=== PATIENT | female | born 1980 | race Caucasian/White ===

== ENCOUNTER 2017-05-03 18:05 | Emergency (ER) | payer OTHER ==
[~2017-05-03] VITALS: Ht 157.5 cm; Wt 65.9 kg
[~2017-05-03 18:05] MED LIST: Z.0.NO CURRENT MEDS
[2017-05-03 18:07] VITALS: BP 115/65; PULSE 97; RESP 17; TEMP 98.6; O2SAT 96
--- NOTE | 2017-05-03 18:11 | PD ---
Physical Exam Time Seen by Provider: 18:09 Narrative 36yo C/o severe lower abd pain started last night about 8pm. LMP 2 weeks. Denies fever, V, D. +nausea in the mornings. Reports a watery vaginal discharge, but no odor. Patient seen in triage. VS reviewed. Awaiting bed placement. Data Data Last Documented VS Vital Signs Date Time Temp Pulse Resp B/P (MAP) Pulse Ox O2 Delivery O2 Flow Rate FiO2 05/03/17 18:07 98.6 97 17 115/65 (82) 96 MDM Supervised Visit with VENESSA: Xin Smith May 03, 2017 18:11
--- NOTE | 2017-05-03 20:17 | PD ---
HPI Chief Complaint: Abdominal Pain Time Seen by Provider: 20:04 Travel History International Travel<30 days: No Contact w/Intl Traveler<30days: No Traveled to known affect area: No History of Present Illness HPI c/o one day h/o diffuse abd pain, crampy, assoc with n/v/D, 02/17, denies /fever/ cough/uri sx/uti sx PFSH Past Medical History ?: Not LMP: APR 2017 Social History Alcohol Use: No (Hx) Tobacco Use: Yes Substance Use: Yes (Hx.) Allergies-Medications (Allergen,Severity, Reaction): Coded Allergies: No Known Allergies (Verified , 05/03/17) Reported Meds & Prescriptions Reported Meds & Active Scripts Active Cipro (Ciprofloxacin HCl) 500 Mg Tab 500 Mg PO BID Flagyl (Metronidazole) 500 Mg Tab 500 Mg PO TID Zofran Odt (Ondansetron Odt) 4 Mg Tab 4 Mg SL Q6HR PRN Ultram (Tramadol HCl) 50 Mg Tab 50 Mg PO Q4H PRN Reported No Current Meds (Miscellaneous Medication) Misc Review of Systems Except as stated in HPI: all other systems reviewed are Neg Gastrointestinal: Positive: Nausea, Diarrhea, Abdominal Pain Physical Exam Narrative GENERAL: SKIN: Warm and dry. HEAD: Atraumatic. Normocephalic. EYES: Pupils equal and round. No scleral icterus. No injection or drainage. ENT: No nasal bleeding or discharge. Mucous membranes pink and moist. NECK: Trachea midline. No JVD. CARDIOVASCULAR: Regular rate and rhythm. RESPIRATORY: No accessory muscle use. Clear to auscultation. Breath sounds equal bilaterally. GASTROINTESTINAL: Abdomen soft, non-tender, nondistended. no rebound/guarding/ rigidity MUSCULOSKELETAL: Extremities without clubbing, cyanosis, or edema. No obvious deformities. NEUROLOGICAL: Awake and alert. No obvious cranial nerve deficits. Motor grossly within normal limits. Five out of 5 muscle strength in the arms and legs. Normal speech. PSYCHIATRIC: Appropriate mood and affect; insight and judgment normal. Data Data Last Documented VS Vital Signs Date Time Temp Pulse Resp B/P (MAP) Pulse Ox O2 Delivery O2 Flow Rate FiO2 05/03/17 21:43 18 100 Room Air 05/03/17 18:07 98.6 97 Orders Orders Complete Blood Count With Diff (05/03/17 20:17) Comprehensive Metabolic Panel (05/03/17 20:17) Lipase (05/03/17 20:17) Urinalysis - C+S If Indicated (05/03/17 20:17) Ct Abd/Pel W/O Iv Contrast (05/03/17 20:17) Iv Access Insert/Monitor (05/03/17 20:17) Ecg Monitoring (05/03/17 20:17) Oximetry (05/03/17 20:17) NPO (05/03/17 20:17) Morphine Inj (Morphine Inj) (05/03/17 20:30) Ondansetron Inj (Zofran Inj) (05/03/17 20:30) Sodium Chloride 0.9% Flush (Ns Flush) (05/03/17 20:30) Ed Urine Pregnancytest Poc (05/03/17 20:17) Metronidazole (Flagyl) (05/03/17 23:45) Levofloxacin (Levaquin) (05/03/17 23:45) Labs Laboratory Tests Test 05/03/17 21:45 White Blood Count 16.9 TH/MM3 Red Blood Count 4.94 MIL/MM3 Hemoglobin 14.4 GM/DL Hematocrit 44.1 % Mean Corpuscular Volume 89.2 FL Mean Corpuscular Hemoglobin 29.1 PG Mean Corpuscular Hemoglobin Concent 32.6 % Red Cell Distribution Width 14.1 % Platelet Count 282 TH/MM3 Mean Platelet Volume 7.7 FL Neutrophils (%) (Auto) 69.5 % Lymphocytes (%) (Auto) 23.1 % Monocytes (%) (Auto) 4.9 % Eosinophils (%) (Auto) 2.0 % Basophils (%) (Auto) 0.5 % Neutrophils # (Auto) 11.7 TH/MM3 Lymphocytes # (Auto) 3.9 TH/MM3 Monocytes # (Auto) 0.8 TH/MM3 Eosinophils # (Auto) 0.3 TH/MM3 Basophils # (Auto) 0.1 TH/MM3 CBC Comment DIFF FINAL Differential Comment Urine Color YELLOW Urine Turbidity HAZY Urine pH 6.5 Urine Specific [place] 1.020 Urine Protein NEG mg/dL Urine Glucose (UA) NEG mg/dL Urine Ketones NEG mg/dL Urine Occult Blood NEG Urine Nitrite NEG Urine Bilirubin NEG Urine Urobilinogen LESS THAN 2.0 MG/DL Urine Leukocyte Esterase SMALL Urine RBC LESS THAN 1 /hpf Urine WBC 2 /hpf Urine Squamous Epithelial Cells 4 /hpf Urine Bacteria RARE /hpf Urine Mucus FEW /lpf Microscopic Urinalysis Comment CULT NOT INDICATED Blood Urea Nitrogen 11 MG/DL Creatinine 0.68 MG/DL Random Glucose 79 MG/DL Total Protein 8.7 GM/DL Albumin 4.2 GM/DL Calcium Level 9.2 MG/DL Alkaline Phosphatase 64 U/L Aspartate Amino Transf (AST/SGOT) 48 U/L Alanine Aminotransferase (ALT/SGPT) 23 U/L Total Bilirubin 0.5 MG/DL Sodium Level 136 MEQ/L Potassium Level 4.7 MEQ/L Chloride Level 104 MEQ/L Carbon Dioxide Level 25.5 MEQ/L Anion Gap 7 MEQ/L Estimat Glomerular Filtration Rate 98 ML/MIN Lipase 126 U/L [facility] Medical Decision Making Medical Screen Exam Complete: Yes Emergency Medical Condition: Yes Medical Record Reviewed: Yes Differential Diagnosis pancreatitis v gastroenteritis v appy v gb dz Narrative Course PATIENT CT DID NOT SHOW ANY APPY, ABSCESS OR E/O SBO/ILEUS, CMP WNL HOWEVER WILL TREAT PT WITH ABX DUE TO LEUKOCYTOSIS BUT OTHERWISE PATIENT IS STABLE AND TOLERATED PO CHALLENGE Diagnosis Primary Impression: ACUTE ENTERITIS Patient Instructions: Enteritis (ED), General Instructions Scripts Ciprofloxacin (Cipro) 500 Mg Tab 500 MG PO BID for Infection, #10 TAB 0 Refills Prov: Aki Feliciano MD 05/03/17 Metronidazole (Flagyl) 500 Mg Tab 500 MG PO TID for Infection, #21 TAB 0 Refills Prov: Aki Feliciano MD 05/03/17 Ondansetron Odt (Zofran Odt) 4 Mg Tab 4 MG SL Q6HR Y for Nausea/Vomiting, #30 TAB 0 Refills Prov: Aki Feliciano MD 05/03/17 Tramadol (Ultram) 50 Mg Tab 50 MG PO Q4H Y for PAIN, #20 TAB 0 Refills Prov: Aki Feliciano MD 05/03/17 Disposition: 01 DISCHARGE HOME Condition: Stable Aki Feliciano MD May 03, 2017 20:17
[2017-05-03] MEDS ORDERED: MORPHINE SULFATE 4 MG/ML INJ IV PUSH ONE (20:30)
[2017-05-03] MEDS ORDERED: SODIUM CHLORIDE 0.9% FLUSH 10 ML FLUSH IV FLUSH PRN (20:30)
[2017-05-03] MEDS ORDERED: ONDANSETRON HCL 4 MG/2 ML VIAL IVP ONE (20:30)
[2017-05-03 21:43] VITALS: RESP 18; O2SAT 100
[2017-05-03 22:13] LABS: BACTERIA, URINE RARE /hpf; BLOOD, URINE NEG (NEG); COMMENT (UR) CULT NOT INDICATED; CULTURE IF INDICATED CULT NOT INDICATED; GLUCOSE,URINE NEG (NEG); KETONE, URINE NEG (NEG); MUCUS URINE FEW /lpf (OCC); NITRITE,URINE NEG (NEG); PH, URINE 6.5 (5.0-8.5); SQUAMOUS EPITHELIAL CELL URINE 4 /hpf (0-5); URINE COLOR YELLOW (YELLW/STRAW)
[2017-05-03 22:15] LABS: AUTOMATED NEUTROPHIL # 11.7 TH/MM3 (1.8-7.7); BASOPHIL # 0.1 TH/MM3 (0-0.2); BASOPHIL % 0.5 % (0.0-2.0); EOSINOPHIL # 0.3 TH/MM3 (0-0.4); HEMATOCRIT 44.1 % (35.0-46.0); HEMO FLAGS DIFF FINAL; LYMPH % 23.1 % (9.0-44.0); LYMPHOCYTE # 3.9 TH/MM3 (1.0-4.8); MEAN CELL VOLUME 89.2 FL (80.0-100.0); MEAN CORPUSCULAR HEMOGLOBIN 29.1 PG (27.0-34.0); MEAN CORPUSCULAR HGB CONC 32.6 % (32.0-36.0); MONO % 4.9 % (0.0-8.0); NEUT % 69.5 % (16.0-70.0); PLATELET COUNT 282 TH/MM3 (150-450); RED BLOOD COUNT 4.94 MIL/MM3 (4.00-5.30); RED CELL DISTRIBUTION WIDTH 14.1 % (11.6-17.2); WHITE BLOOD COUNT 16.9 TH/MM3 (4.0-11.0)
--- NOTE | 2017-05-03 22:19 | RADRPT ---
EXAM DATE/TIME: 05/03/2017 21:57 [place] COMPARISON: No previous studies available for comparison. INDICATIONS : Diffuse abdominal pain with nausea. ORAL CONTRAST: No oral contrast ingested. RADIATION DOSE: 9.96 CTDIvol (mGy) MEDICAL HISTORY : None SURGICAL HISTORY : None. ENCOUNTER: Initial ACUITY: 1 day PAIN SCALE: 6/10 LOCATION: abdomen TECHNIQUE: Volumetric scanning of the abdomen and pelvis was performed. Using automated exposure control and ad justment of the mA and/or kV according to patient size, radiation dose was kept as low as reasonably achievable to obtain optimal diagnostic quality images. DICOM format image data is available electro nically for review and comparison. FINDINGS: LOWER LUNGS: The visualized lower lungs are clear. LIVER: Homogeneous density without lesion. There is no dilation of the biliary tree. No calcified gallston es. SPLEEN: Normal size without lesion. PANCREAS: Within normal limits. KIDNEYS: Normal in size and shape. There is no mass, stone, or hydronephrosis. ADRENAL GLANDS: Within normal limits. VASCULAR: There is no aortic aneurysm. BOWEL/MESENTERY: The stomach, small bowel, and colon demonstrate no acute abnormality. There is no free intraperitone al air or fluid. There is a small periampullary duodenal diverticulum. Mild sigmoid diverticulosis is present. The appendix is normal. ABDOMINAL WALL: Within normal limits. RETROPERITONEUM: There is no lymphadenopathy. BLADDER: No wall thickening or mass. REPRODUCTIVE: Within normal limits. INGUINAL: There is no lymphadenopathy or hernia. MUSCULOSKELETAL: No acute abnormality. CONCLUSION: No acute abnormality is identified within the abdomen or pelvis. Jer Barnes MD on May 03, 2017 at 22:15 Board Certified Radiologist. This report was verified electronically.
[2017-05-03 22:40] LABS: ALT (GPT) 23 U/L (10-53)
[2017-05-03 22:41] LABS: ANION GAP 7 MEQ/L (5-15); BICARBONATE 25.5 MEQ/L (21.0-32.0); BLOOD UREA NITROGEN 11 MG/DL (7-18); CHLORIDE 104 MEQ/L (98-107); GLOMERULAR FILTRATION RATE 98 ML/MIN (>89); SODIUM (NA) 136 MEQ/L (136-145)
[2017-05-03 22:42] LABS: AST (GOT) 48 U/L (15-37); POTASSIUM 4.7 MEQ/L (3.5-5.1)
[2017-05-03 22:43] LABS: ALKALINE PHOSPHATASE 64 U/L (45-117); TOTAL BILIRUBIN ADULT 0.5 MG/DL (0.2-1.0)
[2017-05-03] MEDS ORDERED: METR-1 PO (23:32)
[2017-05-03] MEDS ORDERED: ULTR50TA5 PO (23:32)
[2017-05-03] MEDS ORDERED: ZOFR4TAB3 SL (23:32)
[2017-05-03] MEDS ORDERED: CIPR-9 PO (23:32)
[2017-05-03] MEDS ORDERED: LEVOFLOXACIN 750 MG TAB PO ONE (23:45)
[2017-05-03] MEDS ORDERED: metroNIDAZOLE 500 MG TAB PO ONE (23:45)
== END 2017-05-03 23:55 | disposition home or self-care (01) ==
LOC: NEPD 18:05
DX: K52.9 Noninfective gastroenteritis and colitis, unspecified (principal); D72.829 Elevated white blood cell count, unspecified; Z72.0 Tobacco use; Z79.899 Other long term (current) drug therapy
CPT/HCPCS: 74176; 80053; 81001; 83690; 84703; 85025; 96374; 96375; 99285; J2270; J2405